=== PATIENT | female | born 1970 | race Caucasian/White ===

== ENCOUNTER 2022-10-13 09:23 | Inpatient (IN) ==
[2022-10-13 11:51] LABS: Hematocrit 25.1 % (35-45); Hemoglobin 8.6 g/dL (11.5-14.3); Mean Corpuscular Hemoglobin 30.7 pg (27-33); Mean Corpuscular Hgb Conc 34.1 g/dL (31-36); Mean Corpuscular Volume 89.9 fL (80-97); Mean Platelet Volume 6.8 fL (7.5-11.2); Platelet Count 420 10^3/uL (150-450); Red Blood Count 2.79 10^6/uL (3.63-4.92); Red Cell Distribution Width 20.1 % (12-17); White Blood Count 9.9 10^3/uL (3.8-11.8)
[2022-10-13] MEDS ORDERED: Levalbuterol 1.25MG/0.5ML NEB.SOL INH ONE (11:51)
[2022-10-13] MEDS ORDERED: NS 0.9% 1000 ml BAG 1,000 ML IV ONE (11:51)
[2022-10-13 12:10] LABS: Albumin 3.6 g/dL (3.2-5.2); Albumin/Globulin Ratio 1.2 (1-3); C Reactive Protein 178.47 mg/L (<8.01); Creatinine, Serum 0.79 mg/dL (0.51-0.95); Potassium 4.1 mmol/L (3.5-5.0); Total Bilirubin 0.7 mg/dL (0.2-1.0); Total Protein 6.6 g/dL (6.4-8.9); eGFR CKD-EPI 89.9 (>60)
[2022-10-13 12:12] LABS: Activated Partial Thrombo Time 78.5 seconds (26.0-38.0); INR 1.16 (0.83-1.13)
[2022-10-13 12:46] LABS: Anisocytosis 2+
[2022-10-13 12:47] LABS: ABS Lymphocytes 0.9 10^3/uL (1.0-4.8); ABS Monocytes 1.9 10^3/uL (0.0-0.9); ABS Neutrophils 7.2 10^3/uL (1.5-7.6); ABS Nucleated RBC 0.02 10^3/ul; Eosinophil % 0.1 %; Lymphocyte % 8.8 %; Nucleated Red Blood Cells % 0.2 /100 WBC (0.0-0.4)
[2022-10-13] MEDS ORDERED: Iohexol 350 (CONTRAST) 500 ML MDV IV ONE (12:58)
[2022-10-13 13:55] LABS: Urine Appearance Clear; Urine Bilirubin Negative (Negative); Urine Blood Negative (Negative); Urine Color Yellow; Urine Glucose Negative (Negative); Urine Ketones Negative (Negative); Urine Nitrite Negative (Negative); Urine Protein Negative (Negative); Urine Specific Gravity 1.014 (1.002-1.030); Urine Urobilinogen Negative (Negative)
[2022-10-13 14:09] LABS: High Sensitivity Troponin 1 Hr 7 pg/mL (<15)
[2022-10-13] MEDS: Heparin 5000 UNITS/ML 1 mL VIAL IV SCH ×2 (14:25→21:58)
[2022-10-13] MEDS: Heparin DRIP 25,000 UNITS BAG 25,000 UNITS/500 ML BAG IV SCH (14:27)
[2022-10-13 14:40] LABS: Hematocrit 22.8 % (35-45); Mean Corpuscular Hemoglobin 31.6 pg (27-33); Mean Corpuscular Volume 90.3 fL (80-97); Mean Platelet Volume 6.8 fL (7.5-11.2); Platelet Count 391 10^3/uL (150-450); Red Blood Count 2.52 10^6/uL (3.63-4.92); Red Cell Distribution Width 20.1 % (12-17); White Blood Count 9.3 10^3/uL (3.8-11.8)
[2022-10-13] MEDS ORDERED: Ondansetron 4 mg VIAL 2 MG/ML 2 ml VIAL IV PRN (14:54)
[2022-10-13 15:16] LABS: Creatinine, Serum 0.75 mg/dL (0.51-0.95); eGFR CKD-EPI 95.7 (>60)
[2022-10-13 15:22] LABS: ABS Lymphocytes 0.9 10^3/uL (1.0-4.8); ABS Monocytes 1.7 10^3/uL (0.0-0.9); ABS Neutrophils 6.7 10^3/uL (1.5-7.6); ABS Nucleated RBC 0.02 10^3/ul; Anisocytosis 2+; Eosinophil % 0.2 %; Lymphocyte % 9.9 %; Nucleated Red Blood Cells % 0.2 /100 WBC (0.0-0.4); Polychromasia 1+
[2022-10-13] MEDS ORDERED: Albuterol HFA INHALER 8 gm MDI INH PRN (16:18)
[2022-10-13] MEDS: Mometasone/Formoter 200/5 MDI INH SCH (19:29)
[2022-10-14 04:17] LABS: Hematocrit 17.8 % (35-45); Hemoglobin 6.3 g/dL (11.5-14.3); Mean Corpuscular Hemoglobin 31.7 pg (27-33); Mean Corpuscular Hgb Conc 35.3 g/dL (31-36); Mean Corpuscular Volume 89.8 fL (80-97); Mean Platelet Volume 6.7 fL (7.5-11.2); Platelet Count 436 10^3/uL (150-450); Red Blood Count 1.99 10^6/uL (3.63-4.92); Red Cell Distribution Width 20.3 % (12-17); White Blood Count 9.3 10^3/uL (3.8-11.8)
[2022-10-14 04:44] LABS: ABS Lymphocytes 1.4 10^3/uL (1.0-4.8); ABS Monocytes 1.8 10^3/uL (0.0-0.9); ABS Neutrophils 6.1 10^3/uL (1.5-7.6); ABS Nucleated RBC 0.02 10^3/ul; Calcium 8.2 mg/dL (8.6-10.3); Creatinine, Serum 0.75 mg/dL (0.51-0.95); Eosinophil % 0.3 %; Lymphocyte % 14.6 %; Magnesium 1.9 mg/dL (1.9-2.7); Nucleated Red Blood Cells % 0.2 /100 WBC (0.0-0.4); Potassium 4.1 mmol/L (3.5-5.0); eGFR CKD-EPI 95.7 (>60)
[2022-10-14] MEDS: Mometasone/Formoter 200/5 MDI INH SCH ×2 (07:02→17:52)
[2022-10-14] MEDS: Heparin DRIP 25,000 UNITS BAG 25,000 UNITS/500 ML BAG IV SCH ×2 (07:53→23:42)
[2022-10-14] MEDS: Benzocaine/Menthol LOZ PO PRN (11:49)
[2022-10-14 14:52] LABS: Hemoglobin 8.7 g/dL (11.5-14.3); Mean Corpuscular Hemoglobin 30.9 pg (27-33); Mean Corpuscular Hgb Conc 34.7 g/dL (31-36); Mean Platelet Volume 7.2 fL (7.5-11.2); Platelet Count 436 10^3/uL (150-450); Red Blood Count 2.81 10^6/uL (3.63-4.92); Red Cell Distribution Width 19.3 % (12-17); White Blood Count 9.9 10^3/uL (3.8-11.8)
[2022-10-14 23:23] LABS: Hematocrit 24.6 % (35-45); Hemoglobin 8.5 g/dL (11.5-14.3)
[2022-10-15] MEDS: Mometasone/Formoter 200/5 MDI INH SCH ×2 (07:18→19:47)
[2022-10-15 11:31] LABS: Hematocrit 25.4 % (35-45); Hemoglobin 8.7 g/dL (11.5-14.3); Mean Corpuscular Hemoglobin 30.7 pg (27-33); Mean Corpuscular Hgb Conc 34.3 g/dL (31-36); Mean Corpuscular Volume 89.4 fL (80-97); Mean Platelet Volume 7.5 fL (7.5-11.2); Platelet Count 462 10^3/uL (150-450); Red Blood Count 2.84 10^6/uL (3.63-4.92); Red Cell Distribution Width 19.9 % (12-17); White Blood Count 11.4 10^3/uL (3.8-11.8)
[2022-10-15 12:31] LABS: Calcium 8.5 mg/dL (8.6-10.3); Creatinine, Serum 0.7 mg/dL (0.51-0.95); Potassium 3.9 mmol/L (3.5-5.0)
[2022-10-15 12:47] LABS: ABS Lymphocytes 1.1 10^3/uL (1.0-4.8); ABS Monocytes 1.6 10^3/uL (0.0-0.9); ABS Neutrophils 8.6 10^3/uL (1.5-7.6); ABS Nucleated RBC 0.02 10^3/ul; Eosinophil % 0.4 %; Nucleated Red Blood Cells % 0.2 /100 WBC (0.0-0.4)
[2022-10-15 12:49] LABS: RBC Morphology Normal (Normal)
[2022-10-15] MEDS: Benzocaine/Menthol LOZ PO PRN (20:56)
[2022-10-16 07:09] LABS: Hematocrit 24.9 % (35-45); Hemoglobin 8.8 g/dL (11.5-14.3); Mean Corpuscular Hemoglobin 31.3 pg (27-33); Mean Corpuscular Hgb Conc 35.4 g/dL (31-36); Mean Corpuscular Volume 88.4 fL (80-97); Mean Platelet Volume 7.2 fL (7.5-11.2); Platelet Count 486 10^3/uL (150-450); Red Blood Count 2.82 10^6/uL (3.63-4.92); Red Cell Distribution Width 19.2 % (12-17); White Blood Count 10.1 10^3/uL (3.8-11.8)
[2022-10-16 07:18] LABS: Calcium 8.5 mg/dL (8.6-10.3); Creatinine, Serum 0.79 mg/dL (0.51-0.95); Potassium 3.8 mmol/L (3.5-5.0); eGFR CKD-EPI 89.9 (>60)
[2022-10-16] MEDS: Mometasone/Formoter 200/5 MDI INH SCH (07:24)
[2022-10-16 08:06] LABS: ABS Eosinophils 0.1 10^3/uL (0.0-0.5); ABS Lymphocytes 0.9 10^3/uL (1.0-4.8); ABS Monocytes 1.6 10^3/uL (0.0-0.9); ABS Neutrophils 7.6 10^3/uL (1.5-7.6); ABS Nucleated RBC 0.02 10^3/ul; Eosinophil % 0.5 %; Lymphocyte % 9.1 %; Nucleated Red Blood Cells % 0.2 /100 WBC (0.0-0.4)
[2022-10-16 09:35] VITALS: BP 110/58
== END 2022-10-16 12:12 | disposition home or self-care (01) | DRG 134 ==
LOC: ED 09:23 → SUATTDRO 14:55 → EDHOLD 14:55 → MEDTELE 16:38
PROVIDERS: ADMIT Hospitalist; ATTEND Internal Medicine

== ENCOUNTER 2023-01-20 06:17 | Inpatient (IN) ==
[~2023-01-20 06:17] MED LIST: Buffered Lidocaine 1% SYRIN 1 ml INTRADERM ONE; Lactated Ringers 1000 ml BAG 1,000 ML IV SCH
[2023-01-20] MEDS ORDERED: Sevoflurane BOTTLE ONE (06:54)
[2023-01-20] MEDS ORDERED: Propofol 10 MG/ML 20 ML BTL ONE (06:54)
[2023-01-20] MEDS ORDERED: Ondansetron 4 mg VIAL 2 MG/ML 2 ml VIAL ONE ×2 (06:54→07:07)
[2023-01-20] MEDS ORDERED: Dexamethasone IV 4 MG/ML VIAL 1 ml VIAL ONE ×2 (06:54→07:07)
[2023-01-20] MEDS ORDERED: Lidocaine 2% PF 5 ML VIAL ONE (06:54)
[2023-01-20] MEDS ORDERED: Rocuronium 50 mg VIAL 10 mg/ml 5 ml VIAL (50 mg) ONE (06:55)
[2023-01-20] MEDS ORDERED: Midazolam 2 mg/2 ml VIAL 1 mg/ml 2 ml VIAL (2 mg) ONE (06:55)
[2023-01-20] MEDS ORDERED: fentaNYL 250 mcg/5 ml 50 MCG/ML 5 ml VIAL (250 MCG) ONE (06:55)
[2023-01-20] MEDS ORDERED: Methylene Blue 1% (ANTIDOTE) 10 MG/ML 1 ML SDV VIAL IVPB ONE (07:00)
[2023-01-20] MEDS ORDERED: Bupivacaine 0.5% SDV PF 30ML VIAL ONE (07:00)
[2023-01-20] MEDS ORDERED: Scopolamine 1 mg/72hr PATCH ONE (07:07)
[2023-01-20] MEDS ORDERED: Gentamicin ADULT 40 MG/ML VIAL (2 ML VIAL = 80 MG) ONE (07:09)
[2023-01-20] MEDS ORDERED: ceFAZolin VIAL VIAL ONE ×2 (07:09→11:12)
[2023-01-20] MEDS ORDERED: Bupivacaine 0.25% SDV 30 ML ONE (07:11)
[2023-01-20] MEDS ORDERED: Povidone Iodine 5% OPTH 30 ML BTL ONE (07:19)
[2023-01-20 07:25] LABS: Rapid COVID-19 Molecular Undetected (Undetected)
[2023-01-20] MEDS ORDERED: Ondansetron 4 mg VIAL 2 MG/ML 2 ml VIAL IV PRN (08:00)
[2023-01-20] MEDS ORDERED: Naloxone 0.4 mg VIAL 0.4 mg/ml 1 ml VIAL IV PRN (08:00)
[2023-01-20] MEDS ORDERED: HYDROmorphone 1 MG/1 ML SYRINGE IV PRN (08:00)
[2023-01-20] MEDS ORDERED: Phenylephrine 40 mcg/mL 10mL (400mcg) SYRINGE ONE (08:27)
[2023-01-20] MEDS ORDERED: Acetaminophen IV 1 GM/100ML 1,000 MG/100 ML BAG IV ONE (08:34)
[2023-01-20] MEDS ORDERED: Artificial Tear OPHTH.OINT 3.5 GM ONE (09:16)
[2023-01-20] MEDS ORDERED: HYDROmorphone 0.5 MG/0.5 ML SYRINGE ONE ×3 (11:15→12:33)
[2023-01-20] MEDS ORDERED: Albuterol HFA INHALER 8 gm MDI INH PRN (11:25)
[2023-01-20] MEDS ORDERED: Benzocaine/Menthol LOZ PO PRN (11:31)
[2023-01-20] MEDS ORDERED: HYDROcodone/ACETAMIN 5/325 mg TAB PO PRN (11:33)
[2023-01-20] MEDS ORDERED: Morphine 2 MG/ML SYRINGE IV PRN (11:34)
[2023-01-20] MEDS ORDERED: Labetalol IV 5 MG/ML 20 ml VIAL ONE (13:47)
[2023-01-20] MEDS ORDERED: Labetalol IV 5 MG/ML 20 ml VIAL IV PUSH PRN (13:56)
[2023-01-20] MEDS ORDERED: Metoprolol Tartrate 5 mg VIAL 5 ml VIAL (1 mg/ml) ONE (14:42)
[2023-01-20] MEDS ORDERED: Metoprolol Tartrate 5 mg VIAL 5 ml VIAL (1 mg/ml) IV PRN (14:43)
[2023-01-20] MEDS ORDERED: fentaNYL 100 mcg/2 ml 50 MCG/ML VIAL ONE (14:52)
[2023-01-20] MEDS: fentaNYL 100 mcg/2 ml 50 MCG/ML VIAL IV PRN ×4 (14:54→15:34)
[2023-01-20 15:11] LABS: Albumin 3.7 g/dL (3.2-5.2); Albumin/Globulin Ratio 1.2 (1-3); Calcium 9.2 mg/dL (8.6-10.3); Creatinine, Serum 0.9 mg/dL (0.51-0.95); Globulin 3.1 g/dL (2-4); Magnesium 1.8 mg/dL (1.9-2.7); Potassium 4.3 mmol/L (3.5-5.0); Total Bilirubin 0.4 mg/dL (0.2-1.0); Total Protein 6.8 g/dL (6.4-8.9); eGFR CKD-EPI 76.4 (>60)
[2023-01-20 15:23] LABS: Hematocrit 36.1 % (35-45); Mean Corpuscular Hemoglobin 29.2 pg (27-33); Mean Corpuscular Hgb Conc 33.1 g/dL (31-36); Mean Corpuscular Volume 88.1 fL (80-97); Mean Platelet Volume 8.1 fL (7.5-11.2); Platelet Count 239 10^3/uL (150-450); Red Cell Distribution Width 15.6 % (12-17); White Blood Count 5.2 10^3/uL (3.8-11.8)
[2023-01-20] MEDS ORDERED: Magnesium Sulfate 2 gm BAG 2 GM/50 ML BAG IVPB ONE (15:23)
[2023-01-20] MEDS: ceFAZolin 2 GM PREMIX 2 GM/50 ML BAG IV SCH (20:24)
[2023-01-20] MEDS ORDERED: PTO: Albuterol HFA INHALER 8 gm MDI INH PRN (23:40)
[2023-01-21] MEDS: ceFAZolin 2 GM PREMIX 2 GM/50 ML BAG IV SCH ×2 (03:17→13:39)
[2023-01-21 05:58] LABS: ABS Lymphocytes 1.1 10^3/uL (1.0-4.8); ABS Monocytes 1.2 10^3/uL (0.0-0.9); ABS Neutrophils 7.6 10^3/uL (1.5-7.6); Eosinophil % 0.2 %; Hematocrit 32.2 % (35-45); Hemoglobin 10.9 g/dL (11.5-14.3); Lymphocyte % 10.7 %; Mean Corpuscular Hemoglobin 29.5 pg (27-33); Mean Corpuscular Hgb Conc 33.7 g/dL (31-36); Mean Corpuscular Volume 87.6 fL (80-97); Mean Platelet Volume 7.8 fL (7.5-11.2); Platelet Count 235 10^3/uL (150-450); Red Blood Count 3.68 10^6/uL (3.63-4.92); Red Cell Distribution Width 15.5 % (12-17); White Blood Count 9.9 10^3/uL (3.8-11.8)
[2023-01-21] MEDS ORDERED: Enoxaparin 40 MG/0.4 ML SYR SUBCUT SCH (06:00)
[2023-01-21 06:20] LABS: Calcium 8.8 mg/dL (8.6-10.3); Creatinine, Serum 0.93 mg/dL (0.51-0.95); Magnesium 2.2 mg/dL (1.9-2.7); eGFR CKD-EPI 73.5 (>60)
[2023-01-21] MEDS ORDERED: Mometasone/Formoter 200/5 MDI INH SCH (07:00)
[2023-01-21] MEDS ORDERED: Lactated Ringers 1000 ml BAG 1,000 ML IV ONE (08:44)
[2023-01-21 15:23] VITALS: BP 96/72
== END 2023-01-21 18:30 | disposition home or self-care (01) | DRG 362 ==
LOC: AA 06:17 → MEDTELE 11:22
PROVIDERS: ADMIT Student in an Organized Health Care Education/Training Program; ATTEND Student in an Organized Health Care Education/Training Program